=== PATIENT | female | born 1990 | race Caucasian/White ===

== ENCOUNTER 2024-12-15 08:02 | Emergency (ER) | payer OTHER ==
[~2024-12-15] VITALS: Ht 165.1 cm; Wt 70.2 kg
[2024-12-15] MEDS ORDERED: BACT800T5 PO (08:18)
[2024-12-15] MEDS ORDERED: IBUP200T46 PO (08:18)
[2024-12-15] MEDS: LIDOCAINE 1% MDV 20ML VIAL IM ONE (09:39)
[2024-12-15 10:30] VITALS: BP 123/62; TEMP 97.6; O2SAT 99
== END 2024-12-15 10:33 | disposition home or self-care (01) ==
LOC: M ED 08:02
DX: N76.4 Abscess of vulva (principal); Z88.1 Allergy status to other antibiotic agents; Z79.1 Long term (current) use of non-steroidal anti-inflammatories (NSAID); Z79.899 Other long term (current) drug therapy

== ENCOUNTER → 2024-12-19 | Outpatient (CLI) | payer OTHER ==
[~2024-12-19] MED LIST: BACT800T5 PO; IBUP200T46 PO
[2024-12-19 18:31] LABS: HEMATOCRIT 40.6 % (36.0-47.0); HEMOGLOBIN 13.1 g/dl (12.0-15.5); MEAN CORPUSCULAR HGB CONC 32.3 g/dl (32.0-36.5); PLATELET COUNT, AUTOMATED 393 10^3/uL (150-450); RED BLOOD COUNT 4.51 10^6/uL (4.00-5.40); WHITE BLOOD COUNT 5.9 10^3/uL (4.0-10.0)
[2024-12-19 18:49] LABS: HEMOGLOBIN A1c 4.8 % (4.0-6.0)
[2024-12-19 19:00] LABS: THYROID STIMULATING HORMONE 2.115 uIU/ML (0.55-4.78)
[2024-12-19 19:24] LABS: ALKALINE PHOSPHATASE 59 U/L (35-104); ALT/SGPT 18 U/L (7.0-40); AST/SGOT 17 U/L (<34); BILIRUBIN,TOTAL 0.5 MG/DL (0.3-1.2); BLOOD UREA NITROGEN 12 MG/DL (9-23); CALCIUM LEVEL 9.1 MG/DL (8.5-10.1); CARBON DIOXIDE LEVEL 24 MMOL/L (20-31); CHLORIDE LEVEL 105 MMOL/L (98-107); CHOLESTEROL LEVEL 180 MG/DL (<200); CREATININE FOR GFR 0.77 MG/DL (0.55-1.30); GLOMERULAR FILTRATION RATE > 60.0 (>60); GLUCOSE, FASTING 68 MG/DL (60-100); MAGNESIUM LEVEL 1.9 MG/DL (1.8-2.4); SODIUM LEVEL 139 MMOL/L (136-145); TOTAL PROTEIN 7.6 G/DL (5.7-8.2)
[2024-12-19 19:26] LABS: FOLLICLE STIMULATING HORMONE 7.2 mIU/ML; LUTEINIZING HORMONE 3.2 mIU/ML; THYROXINE (T4) 7.8 UG/DL (4.5-10.9)
[2024-12-19 19:27] LABS: TOTAL 25(OH) VITAMIN D 28.4 NG/ML (20.0-100.0)
== END ==
LOC: M LRY 08:17
PROVIDERS: ATTEND Student in an Organized Health Care Education/Training Program
DX: R53.83 Other fatigue (principal); N92.6 Irregular menstruation, unspecified

== ENCOUNTER → 2025-09-19 | Outpatient (REF) | payer OTHER ==
[2025-09-19 17:22] LABS: BASO # 0.1 10^3/uL (0.0-0.2); BASO % 0.8 % (0.0-1.0); EOS # 0.1 10^3/uL (0.0-0.5); EOS % 1.7 % (0.0-3.0); LYMPH # 2.5 10^3/uL (1.5-5.0); LYMPH % 29.8 % (24.0-44.0); MONO # 0.5 10^3/uL (0.0-0.8); MONO % 6.5 % (2.0-8.0); NEUTROPHILS # 5.1 10^3/uL (1.5-8.5); NEUTROPHILS % 61.1 % (36.0-66.0); PLATELET COUNT, AUTOMATED 379 10^3/uL (150-450)
[2025-09-19 17:44] LABS: ALT/SGPT 14 U/L (7.0-40); AST/SGOT 16 U/L (<34); CALCIUM LEVEL 9.4 MG/DL (8.5-10.1); CARBON DIOXIDE LEVEL 26 MMOL/L (20-31); CHLORIDE LEVEL 103 MMOL/L (98-107); CREATININE FOR GFR 0.69 MG/DL (0.55-1.30); GLOMERULAR FILTRATION RATE > 90.0 (>60); IRON (FE) 103 UG/DL (50-170); PERCENT SATURATION 35.8 % (13.2-45.0); POTASSIUM SERUM 4.1 MMOL/L (3.5-5.1); SODIUM LEVEL 139 MMOL/L (136-145)
[2025-09-19 17:45] LABS: FREE T4 1.25 NG/DL (0.89-1.76)
== END ==
LOC: M SFHCLERA 13:11
PROVIDERS: ATTEND Student in an Organized Health Care Education/Training Program
DX: D50.9 Iron deficiency anemia, unspecified (principal); R00.2 Palpitations